=== PATIENT | male | born 1960 | race Caucasian/White ===

== ENCOUNTER 2018-04-21 14:56 | Outpatient (CLI) | payer OTHER | END 2018-04-21 14:57 | disposition home or self-care (01) | LOC: DTY/OP 14:56 | PROVIDERS: ATTEND Family Medicine | DX: E11.9 Type 2 diabetes mellitus without complications (principal) | CPT/HCPCS: 97802 ==

== ENCOUNTER 2020-01-16 08:58 | Outpatient (CLI) | payer BC ==
--- NOTE | 2020-01-16 10:04 | ULT ---
RENAL ULTRASOUND: INDICATION: History of renal stones. FINDINGS: Both kidneys have a normal sonographic appearance. There is a small 1.5 to 2.0 cm cyst which is exop hytic from the superior right kidney. There is an echogenic focus seen in the mid right renal collecting structures measuring 1.0 cm which may represent a small calculus. There are tiny echogenic foci seen in the left collecting structures which may represent small calcul i. There is no hydronephrosis. The left kidney is unremarkable. The bladder is imaged and appears unremarkable. IMPRESSION: 1. No evidence of hydronephrosis. 2. There are echogenic foci seen within the collecting structures bilaterally suggesting bilateral r enal calculi. Small calculi are not well delineated by ultrasound and consider KUB or CT for better delineation of calcifications. 3. Small right renal cyst. 4. Renal ultrasound otherwise unremarkable. POS: AH
--- NOTE | 2020-01-16 10:10 | RAD ---
SUPINE ABDOMEN: INDICATION: Renal calculi. FINDINGS: Bowel content obscures the kidneys bilaterally. There are tiny calcifications overlying both renal o utlines suggesting tiny renal calculi. Bowel content obscures both kidneys limiting evaluation of th e renal calcifications. Bowel gas pattern is unremarkable. IMPRESSION: Evidence of small bilateral renal calculi, poorly delineated due to overlying bowel content. POS: AH
[2020-01-16 11:23] LABS: Hemoglobin 16.8 g/dL (14.0-18.0)
[2020-01-16 12:38] LABS: Albumin (w/Testosterone Panel) 4.3 g/dL
[2020-01-16 12:48] LABS: Sex Hormone Binding Globulin 25.6 nmol/L (11-78); Testosterone, Free 58.8 pg/mL (47-244)
== END 2020-01-16 08:59 | disposition home or self-care (01) ==
LOC: SCSULT 08:58
PROVIDERS: ATTEND Urology
DX: N20.0 Calculus of kidney (principal)
CPT/HCPCS: 74018; 76770; 84270; 84403; 85014; 85018